=== PATIENT | female | born 1995 | race Caucasian/White ===

== ENCOUNTER 2016-12-23 15:34 | Outpatient (CLI) | payer OTHER ==
[2016-12-23 16:39] LABS: AMNISURE (ROM) NEGATIVE (NEGATIVE)
[2016-12-23] MEDS ORDERED: HYDROXYZINE PAMOATE 50 MG CAPSULE ONE (17:06)
[2016-12-23] MEDS ORDERED: HYDROXYZINE PAMOATE 50 MG CAPSULE PO ONE (17:10)
[2016-12-23] MEDS ORDERED: HYDROXYZINE HCL INJ 50 MG/1 ML VIAL IM ONE (17:12)
== END 2016-12-23 17:55 | disposition home or self-care (01) ==
LOC: LC 15:34
PROVIDERS: ATTEND Student in an Organized Health Care Education/Training Program
PROC: 4A1HXCZ Monitoring of Products of Conception, Cardiac Rate, External Approach (ICD-10-PCS; principal; 2016-12-23)
DX: O47.1 False labor at or after 37 completed weeks of gestation (principal); Z3A.00 Weeks of gestation of pregnancy not specified
CPT/HCPCS: 59025; 84112; J3490